=== PATIENT | female | born 1955 | race Two or more races ===

== ENCOUNTER → 2017-08-26 | Emergency (ER) | payer OTHER ==
[~2017-08-26] VITALS: Ht 149.9 cm; Wt 92.1 kg
[~2017-08-26] MED LIST: ADVAIR HFA 115/12 GM; Apresoline 20MG Vial IV; CARDIZEM LA120 MG; CARDIZEM5 MG/ML; CIPRO500 MG PO; CLONAZEPAM0.5 MG PO; CLOTRIMAZOLE15 GM TOP; COZAAR25 MG; CYMBALTA30 MG PO; CYMBALTA60 MG PO; Cardizem 120MG TAB PO; Coreg PO; DEXILANT30 MG PO; DIOVAN160 M1 PO; FLAGYL500MG PO; GABAPENTIN800 MG PO; GLIPIZIDE ER5 MG; HUMALOG100 U/ML; HUMULIN R500 U/ML; HYZAAR 100-121 UDTAB; HYZAAR 100-121 UDTAB PO; Hyzaar 100-25 Tablet PO; INTEGRA PLUS C1 EACH PO; INTESTINEX1 CAP PO; INVANZ1 GM IV; ISORDIL PO; ISORDIL10 MG; ISORDIL40 MG; LANTUS100 U/ML; LASIX40 MG; LEVSIN/SL0.125 MG PO; MEDROLPACK PO; NEURONTIN300 MG; NEURONTIN800 MG PO; NOVOLIN N100 UNITS/ IJ; NOVOLIN R100 U/ML; Neurontin PO; POM (MEDICAMENTO EN PISO) PO; PROTONIX40 MG PO; RASUVO 7.57.5 MG/0.1; SERTRALINE HCL50 MG PO; SIMPONI AR50 MG/4 ML IV; TEOFILINA; TORSEMIDE10 MG; ULTRAM50 MG PO; URIN D.S. TABLE1 TAB PO; XARELTO 20MG TAB PO; Xopenex 0.63 MG/3 ML SOLUTION IH
== END | disposition home or self-care (01) ==
LOC: ER 16:45
DX: R06.02 Shortness of breath (principal); J44.9 Chronic obstructive pulmonary disease, unspecified

== ENCOUNTER 2017-09-07 09:17 | Inpatient (IN) | payer OTHER ==
[~2017-09-07] VITALS: Ht 149.9 cm; Wt 90.7 kg
== END 2017-09-11 15:41 | disposition home or self-care (01) | DRG 191 ==
LOC: ER 09:17 → SEC-K 16:13 → SURH 17:25
PROC: 4A033R1 Measurement of Arterial Saturation, Peripheral, Percutaneous Approach (ICD-10-PCS; principal; 2017-09-07)
PROC: 3E0F7GC Introduction of Other Therapeutic Substance into Respiratory Tract, Via Natural or Artificial Opening (ICD-10-PCS; 2017-09-07)
PROC: B246ZZZ Ultrasonography of Right and Left Heart (ICD-10-PCS; 2017-09-07)
PROC: CB121ZZ Planar Nuclear Medicine Imaging of Lungs and Bronchi using Technetium 99m (Tc-99m) (ICD-10-PCS; 2017-09-10)
DX: J44.1 Chronic obstructive pulmonary disease with (acute) exacerbation (principal); J45.31 Mild persistent asthma with (acute) exacerbation; E66.01 Morbid (severe) obesity due to excess calories; K29.60 Other gastritis without bleeding; I48.0 Paroxysmal atrial fibrillation; I10 Essential (primary) hypertension; M06.89 Other specified rheumatoid arthritis, multiple sites; F32.89 Other specified depressive episodes; E11.65 Type 2 diabetes mellitus with hyperglycemia; R09.02 Hypoxemia

== ENCOUNTER 2017-10-26 10:00 | Emergency (ER) | payer OTHER ==
[~2017-10-26] VITALS: Ht 149.9 cm; Wt 89.8 kg
[2017-10-26] MEDS ORDERED: SULFAZINE EC500 MG (10:16)
== END 2017-10-26 14:50 | disposition home or self-care (01) ==
LOC: ER 10:00
DX: J44.9 Chronic obstructive pulmonary disease, unspecified (principal); D64.89 Other specified anemias; J11.1 Influenza due to unidentified influenza virus with other respiratory manifestations

== ENCOUNTER 2017-11-03 18:32 | Emergency (ER) | payer OTHER ==
[~2017-11-03] VITALS: Ht 149.9 cm; Wt 89.4 kg
[~2017-11-03 18:32] MED LIST changes: +SULFAZINE EC500 MG
== END 2017-11-04 11:45 | disposition home or self-care (01) ==
LOC: ER 18:32
DX: M19.031 Primary osteoarthritis, right wrist (principal)

== ENCOUNTER 2017-11-22 11:22 | Inpatient (IN) | payer OTHER ==
[~2017-11-22] VITALS: Ht 149.9 cm; Wt 86.2 kg
[2017-12-05] MEDS ORDERED: FENTANYL1 EAC3 TD (12:11)
== END 2017-12-05 12:28 | disposition home or self-care (01) | DRG 871 ==
LOC: ER 11:22 → SEC-K 16:55 → MEDI 16:55
PROC: 4A033R1 Measurement of Arterial Saturation, Peripheral, Percutaneous Approach (ICD-10-PCS; principal; 2017-11-22)
PROC: 3E0F7GC Introduction of Other Therapeutic Substance into Respiratory Tract, Via Natural or Artificial Opening (ICD-10-PCS; 2017-11-22)
PROC: BT43ZZZ Ultrasonography of Bilateral Kidneys (ICD-10-PCS; 2017-11-22)
PROC: 02HV33Z Insertion of Infusion Device into Superior Vena Cava, Percutaneous Approach (ICD-10-PCS; 2017-11-23)
PROC: BH02ZZZ Plain Radiography of Bilateral Breasts (ICD-10-PCS; 2017-11-28)
PROC: 4A12X4Z Monitoring of Cardiac Electrical Activity, External Approach (ICD-10-PCS; 2017-11-28)
PROC: BW4GZZZ Ultrasonography of Pelvic Region (ICD-10-PCS; 2017-12-03)
DX: A41.51 Sepsis due to Escherichia coli [E. coli] (principal); J18.9 Pneumonia, unspecified organism; J44.1 Chronic obstructive pulmonary disease with (acute) exacerbation; J45.41 Moderate persistent asthma with (acute) exacerbation; N39.0 Urinary tract infection, site not specified; M06.89 Other specified rheumatoid arthritis, multiple sites; I10 Essential (primary) hypertension; E66.01 Morbid (severe) obesity due to excess calories; G47.33 Obstructive sleep apnea (adult) (pediatric); R09.02 Hypoxemia; I48.0 Paroxysmal atrial fibrillation; Z79.01 Long term (current) use of anticoagulants; E11.42 Type 2 diabetes mellitus with diabetic polyneuropathy; E11.65 Type 2 diabetes mellitus with hyperglycemia; D50.8 Other iron deficiency anemias; J98.6 Disorders of diaphragm; B96.29 Other Escherichia coli [E. coli] as the cause of diseases classified elsewhere; K21.0 Gastro-esophageal reflux disease with esophagitis; Z16.12 Extended spectrum beta lactamase (ESBL) resistance; R33.8 Other retention of urine

== ENCOUNTER 2017-12-27 08:51 | Inpatient (IN) | payer OTHER ==
[~2017-12-27] VITALS: Ht 157.5 cm; Wt 86.2 kg
[~2017-12-27 08:51] MED LIST changes: +FENTANYL1 EAC3 TD
[2018-01-09] MEDS ORDERED: LOSARTAN POTASS50 MG PO (07:42)
[2018-01-09] MEDS ORDERED: Plaquenil PO (07:42)
[2018-01-09] MEDS ORDERED: MONTELUKAST SOD10 MG PO (07:42)
[2018-01-09] MEDS ORDERED: GABAPENTIN800 MG PO (07:42)
[2018-01-09] MEDS ORDERED: AZULFIDINE 500 MG PO (07:42)
[2018-01-09] MEDS ORDERED: POM (MEDICAMENTO EN SUBCUTANEO (07:42)
[2018-01-09] MEDS ORDERED: Coreg 6.25MG TABLET PO (07:42)
[2018-01-09] MEDS ORDERED: DILTIAZEM HCL120 MG PO (07:42)
[2018-01-09] MEDS ORDERED: Theo-24 PO (07:42)
[2018-01-09] MEDS ORDERED: SERTRALINE HCL50 MG PO (07:42)
[2018-01-09] MEDS ORDERED: PREDNISONE10 MG PO (07:42)
[2018-01-09] MEDS ORDERED: CYMBALTA60 MG PO (07:42)
[2018-01-09] MEDS ORDERED: Lantus 1000 UNITS/10 SUBCUTANEO ×2 (07:42)
[2018-01-09] MEDS ORDERED: HumaLOG 100 UNIT/1 M SUBCUTANEO (07:42)
[2018-01-09] MEDS ORDERED: XARELTO20 MG PO (07:42)
== END 2018-01-09 09:59 | disposition home or self-care (01) | DRG 202 ==
LOC: ER 08:51 → MEDJ 12-28 09:49
PROC: 3E0F7GC Introduction of Other Therapeutic Substance into Respiratory Tract, Via Natural or Artificial Opening (ICD-10-PCS; principal; 2017-12-28)
PROC: 02H633Z Insertion of Infusion Device into Right Atrium, Percutaneous Approach (ICD-10-PCS; 2018-01-04)
DX: J45.51 Severe persistent asthma with (acute) exacerbation (principal); N39.0 Urinary tract infection, site not specified; J44.1 Chronic obstructive pulmonary disease with (acute) exacerbation; J44.0 Chronic obstructive pulmonary disease with (acute) lower respiratory infection; R09.02 Hypoxemia; G47.33 Obstructive sleep apnea (adult) (pediatric); E66.01 Morbid (severe) obesity due to excess calories; I10 Essential (primary) hypertension; I48.0 Paroxysmal atrial fibrillation; M06.89 Other specified rheumatoid arthritis, multiple sites; K21.0 Gastro-esophageal reflux disease with esophagitis; E11.42 Type 2 diabetes mellitus with diabetic polyneuropathy; E11.65 Type 2 diabetes mellitus with hyperglycemia; Z79.01 Long term (current) use of anticoagulants; J20.9 Acute bronchitis, unspecified; F32.89 Other specified depressive episodes

== ENCOUNTER 2018-02-22 13:53 | Emergency (ER) | payer OTHER ==
[~2018-02-22] VITALS: Ht 152.4 cm; Wt 104.3 kg
[~2018-02-22 13:53] MED LIST changes: +AZULFIDINE 500 MG PO; +Coreg 6.25MG TABLET PO; +DILTIAZEM HCL120 MG PO; +HumaLOG 100 UNIT/1 M SUBCUTANEO; +LOSARTAN POTASS50 MG PO; +Lantus 1000 UNITS/10 SUBCUTANEO; +MONTELUKAST SOD10 MG PO; +POM (MEDICAMENTO EN SUBCUTANEO; +PREDNISONE10 MG PO; +Plaquenil PO; +Theo-24 PO; +XARELTO20 MG PO
== END 2018-02-22 20:14 | disposition designated cancer center or children's hospital (05) ==
LOC: ER 13:53
DX: R06.02 Shortness of breath (principal); I10 Essential (primary) hypertension; F32.89 Other specified depressive episodes; F43.21 Adjustment disorder with depressed mood; R45.851 Suicidal ideations; Z74.01 Bed confinement status

== ENCOUNTER 2018-03-30 19:06 | Inpatient (IN) | payer OTHER ==
[~2018-03-30] VITALS: Ht 149.9 cm; Wt 89.8 kg
== END 2018-04-09 12:25 | disposition home or self-care (01) | DRG 377 ==
LOC: ER 19:06 → MEDJ 03-31 15:42 → MEDI 04-02 11:17 → MEDJ 04-02 11:20
PROC: 3E0F7GC Introduction of Other Therapeutic Substance into Respiratory Tract, Via Natural or Artificial Opening (ICD-10-PCS; 2018-03-31)
PROC: 5A09557 Assistance with Respiratory Ventilation, Greater than 96 Consecutive Hours, Continuous Positive Airway Pressure (ICD-10-PCS; 2018-03-31)
PROC: 0DJ08ZZ Inspection of Upper Intestinal Tract, Via Natural or Artificial Opening Endoscopic (ICD-10-PCS; principal; 2018-04-02)
PROC: BW25Y0Z Computerized Tomography (CT Scan) of Chest, Abdomen and Pelvis using Other Contrast, Unenhanced and Enhanced (ICD-10-PCS; 2018-04-02)
PROC: 02H633Z Insertion of Infusion Device into Right Atrium, Percutaneous Approach (ICD-10-PCS; 2018-04-03)
DX: K92.1 Melena (principal); A41.9 Sepsis, unspecified organism; D62 Acute posthemorrhagic anemia; J44.1 Chronic obstructive pulmonary disease with (acute) exacerbation; N10 Acute pyelonephritis; B37.49 Other urogenital candidiasis; J45.41 Moderate persistent asthma with (acute) exacerbation; J98.11 Atelectasis; I10 Essential (primary) hypertension; I48.0 Paroxysmal atrial fibrillation; M06.89 Other specified rheumatoid arthritis, multiple sites; G47.33 Obstructive sleep apnea (adult) (pediatric); E11.65 Type 2 diabetes mellitus with hyperglycemia; M79.7 Fibromyalgia; F32.89 Other specified depressive episodes; E66.01 Morbid (severe) obesity due to excess calories; R09.02 Hypoxemia; B96.29 Other Escherichia coli [E. coli] as the cause of diseases classified elsewhere; Z16.12 Extended spectrum beta lactamase (ESBL) resistance; K21.0 Gastro-esophageal reflux disease with esophagitis

== ENCOUNTER 2018-04-13 20:45 | Emergency (ER) | payer OTHER ==
[~2018-04-13] VITALS: Ht 147.3 cm; Wt 90.7 kg
== END 2018-04-14 00:35 | disposition home or self-care (01) ==
LOC: ER 20:45
DX: S00.03XA Contusion of scalp, initial encounter (principal); S80.02XA Contusion of left knee, initial encounter; S60.212A Contusion of left wrist, initial encounter; S60.211A Contusion of right wrist, initial encounter; W01.198A Fall on same level from slipping, tripping and stumbling with subsequent striking against other object, initial encounter; Y93.E8 Activity, other personal hygiene; Y92.012 Bathroom of single-family (private) house as the place of occurrence of the external cause; Y99.8 Other external cause status

== ENCOUNTER 2018-09-09 13:08 | Emergency (ER) | payer OTHER ==
[~2018-09-09] VITALS: Ht 149.9 cm; Wt 131.5 kg
== END 2018-09-09 19:28 | disposition home or self-care (01) ==
LOC: ER 13:08
DX: S00.83XA Contusion of other part of head, initial encounter (principal); S80.02XA Contusion of left knee, initial encounter; S70.02XA Contusion of left hip, initial encounter; S20.212A Contusion of left front wall of thorax, initial encounter; M12.562 Traumatic arthropathy, left knee; W18.09XA Striking against other object with subsequent fall, initial encounter; Y93.89 Activity, other specified; Y92.018 Other place in single-family (private) house as the place of occurrence of the external cause; Y99.8 Other external cause status

== ENCOUNTER 2018-10-05 10:44 | Emergency (ER) | payer OTHER ==
[~2018-10-05] VITALS: Ht 154.9 cm; Wt 90.7 kg
== END 2018-10-05 21:41 | disposition home or self-care (01) ==
LOC: ER 10:44
DX: R06.02 Shortness of breath (principal); J44.9 Chronic obstructive pulmonary disease, unspecified

== ENCOUNTER 2019-01-30 21:07 | Emergency (ER) | payer OTHER ==
[~2019-01-30] VITALS: Ht 149.9 cm; Wt 87.1 kg
[2019-01-30] MEDS ORDERED: LASIX20 MG (21:36)
== END 2019-01-30 23:49 | disposition home or self-care (01) ==
LOC: ER 21:07
DX: S00.03XA Contusion of scalp, initial encounter (principal); R42 Dizziness and giddiness; W18.09XA Striking against other object with subsequent fall, initial encounter; Y93.89 Activity, other specified; Y92.018 Other place in single-family (private) house as the place of occurrence of the external cause; Y99.8 Other external cause status

== ENCOUNTER 2019-03-07 19:47 | Emergency (ER) | payer OTHER ==
[~2019-03-07] VITALS: Ht 157.5 cm; Wt 113.4 kg
[~2019-03-07 19:47] MED LIST changes: +LASIX20 MG
== END 2019-03-07 23:30 | disposition home or self-care (01) ==
LOC: ER 19:47
DX: R07.89 Other chest pain (principal); I11.0 Hypertensive heart disease with heart failure; I50.89 Other heart failure; J44.9 Chronic obstructive pulmonary disease, unspecified

== ENCOUNTER 2019-06-04 15:34 | Emergency (ER) | payer OTHER ==
[~2019-06-04] VITALS: Ht 149.9 cm; Wt 90.7 kg
== END 2019-06-04 22:20 | disposition home or self-care (01) ==
LOC: ER 15:34
DX: R07.89 Other chest pain (principal); R06.02 Shortness of breath

== ENCOUNTER 2019-09-08 16:13 | Inpatient (IN) | payer OTHER ==
[~2019-09-08] VITALS: Ht 149.9 cm; Wt 90.7 kg
[2019-09-08] MEDS ORDERED: CARVEDILOL3.125 MG (16:24)
[2019-09-08] MEDS ORDERED: CARDIZEM120 MG (16:24)
[2019-09-08] MEDS ORDERED: HUMALOG100 UNIT/2 (16:24)
[2019-09-08] MEDS ORDERED: LOSARTAN POTASS50 MG (16:24)
[2019-09-08] MEDS ORDERED: [UNRECOGNIZED DRUG - OTHER] (16:25)
--- NOTE | 2019-09-08 17:09 | NUR ---
SE RECIBE PTE ALERTA Y ORIENTADA X3 EN AMBULANCIA ACOMAPANDADA DE FAMILIATR LA CUAL REFIERE TRAER A PTE POR DIFICULTAD RESPIRATORIA. PTE REFIERE PADECER DE COPD, HBP, DM, ARTRITIS. PTE SE DR CORDOVA Y DR. LARSEN. SE MIDEN S/V APTE Y SE REALIZA EKG. PTE SE COLOCA EN UNIDAD DE K6. PTE PENDIENTE A EVALUACION MEDICA.
--- NOTE | 2019-09-09 00:25 | NUR ---
PTE ALERTA Y ORIENTADA X 3 ESFERAS EN COMPANIA DE FAMILIAR,EN CAMA CON BARANDAS ELEVADAS,CONECTADA A MONITOR CARDIACO Y OXIMETRIA,AREA DE VENOPUNCION PATENTE Y CARINE DE EDEMA,PTE CON NUEVA FERNANDA DE TERAPIAS RESP PENDIENTES Y NOTIFICADAS.
--- NOTE | 2019-09-09 02:00 | NUR ---
PACIENTE ALERTA Y ORIENTADA X3. REFIERE DESEA UN MUNGUIA PARA NO LEVANTARSE PORQUE SE FATIGA MUCHO. SE NOTIFICO A BRAYDEN. KAYLAN Y SE INSETO SONDA URINARIA BAJO MEDIDAS ASEPTICAS Y ESTERILES. PACIENTE ELIMINO 600ML DE ORINA AMARILLO.
--- NOTE | 2019-09-09 05:30 | NUR ---
PACIENTE ALERTA Y ORIENTADA X3. SE MIDE [id number]/DL Y SE NOTIFICA A DRA. KIMBROUGH.
--- NOTE | 2019-09-09 08:03 | NUR ---
PACIENTE ALERTA Y ORIENTADA EN CECELIA ARMOND ESFERAS, CONECTADA A MONITOR CARDIACO PRESENTANDO TAQUICARDIA SINOSAL DE 109 LAT/MIN, SPO2 96%, PRESENTA FATIGA, CANULA NASAL A 2 LT, TIENE DOS SALINE LOCK EN BRAZO LT, AMBAS VENOPUNCIONES PATENTES Y LIBRES DE S/S DE FLEBITIS E INFILTRACION. TIENE SONDA URINARIA DRENANDO ORINA AMARILLO RAFFY. TERAPIA RESPIRATORIA DE XOPENEX 1.25 MG Q 4HRS. PEDIENTE EVALUACION MEDICINA INTERNA CON DR CORDOVA POR COPD EXACERBADO.
--- NOTE | 2019-09-09 11:35 | NUR ---
SE LE REALIZA UN DEXTRO AL PACIENTE EL CUAL REFLEJA DXT DE 410MG/DL SE LE NOTIFICA AL DR. ACEVEDO. DR. ACEVEDO ORDENA 10UNITS DE HUMALIN R. SE ORIENTA AL PACIENTE SOBRE MEDICAMENTO ORDENADO Y PACIENTE REFIERE ENTENDER. SE PROVEE EL MEDICAMENTO Y SE MANTIENE AL PACIENTE BAJO OBSERVACION POR CAMBIOS EN CONDICION DE ALONZO.
== END 2019-11-06 14:39 | disposition home or self-care (01) | DRG 190 ==
LOC: ER → MEDI 09-09 13:43 → MEDJ 09-12 14:32 → ICU 09-26 03:17 → MEDJ 10-23 20:19
PROVIDERS: ADMIT Student in an Organized Health Care Education/Training Program
PROC: CB121ZZ Planar Nuclear Medicine Imaging of Lungs and Bronchi using Technetium 99m (Tc-99m) (ICD-10-PCS; 2019-09-23)
PROC: 5A09557 Assistance with Respiratory Ventilation, Greater than 96 Consecutive Hours, Continuous Positive Airway Pressure (ICD-10-PCS; principal; 2019-09-24)
PROC: 0BH17EZ Insertion of Endotracheal Airway into Trachea, Via Natural or Artificial Opening (ICD-10-PCS; 2019-09-24)
PROC: 4A12XFZ Monitoring of Cardiac Rhythm, External Approach (ICD-10-PCS; 2019-09-24)
PROC: B245ZZZ Ultrasonography of Left Heart (ICD-10-PCS; 2019-09-24)
PROC: 5A09557 Assistance with Respiratory Ventilation, Greater than 96 Consecutive Hours, Continuous Positive Airway Pressure (ICD-10-PCS; 2019-09-25)
PROC: 02HV33Z Insertion of Infusion Device into Superior Vena Cava, Percutaneous Approach (ICD-10-PCS; 2019-09-25)
PROC: 4A033R1 Measurement of Arterial Saturation, Peripheral, Percutaneous Approach (ICD-10-PCS; 2019-09-25)
PROC: 0DH67UZ Insertion of Feeding Device into Stomach, Via Natural or Artificial Opening (ICD-10-PCS; 2019-10-02)
PROC: BW40ZZZ Ultrasonography of Abdomen (ICD-10-PCS; 2019-10-15)
PROC: B54DZZZ Ultrasonography of Bilateral Lower Extremity Veins (ICD-10-PCS; 2019-10-21)
PROC: B54DZZZ Ultrasonography of Bilateral Lower Extremity Veins (ICD-10-PCS; 2019-10-24)
PROC: 30233N1 Transfusion of Nonautologous Red Blood Cells into Peripheral Vein, Percutaneous Approach (ICD-10-PCS; 2019-10-26)
PROC: CB2YYZZ Tomographic (Tomo) Nuclear Medicine Imaging of Respiratory System using Other Radionuclide (ICD-10-PCS; 2019-11-03)
PROC: B54DZZZ Ultrasonography of Bilateral Lower Extremity Veins (ICD-10-PCS; 2019-11-03)
DX: J44.1 Chronic obstructive pulmonary disease with (acute) exacerbation (principal); J96.01 Acute respiratory failure with hypoxia; J15.1 Pneumonia due to Pseudomonas; I48.20 Chronic atrial fibrillation, unspecified; N39.0 Urinary tract infection, site not specified; N17.9 Acute kidney failure, unspecified; E87.1 Hypo-osmolality and hyponatremia; I82.621 Acute embolism and thrombosis of deep veins of right upper extremity; T82.7XXA Infection and inflammatory reaction due to other cardiac and vascular devices, implants and grafts, initial encounter; Z79.01 Long term (current) use of anticoagulants; M06.9 Rheumatoid arthritis, unspecified; G47.33 Obstructive sleep apnea (adult) (pediatric); E87.6 Hypokalemia; E66.01 Morbid (severe) obesity due to excess calories; I11.0 Hypertensive heart disease with heart failure; I50.9 Heart failure, unspecified; F32.9 Major depressive disorder, single episode, unspecified; R31.9 Hematuria, unspecified; D64.9 Anemia, unspecified; Y84.8 Other medical procedures as the cause of abnormal reaction of the patient, or of later complication, without mention of misadventure at the time of the procedure; B95.2 Enterococcus as the cause of diseases classified elsewhere; E11.65 Type 2 diabetes mellitus with hyperglycemia